=== PATIENT | female | born 1990 | race Two or more races ===

== ENCOUNTER 2016-12-21 04:58 | Day surgery (SDC) | payer OTHER ==
[2016-12-21] MEDS ORDERED: KETOROLAC TROMETHAMINE 30 MG/ML 1 ML VIAL ONE ×2 (05:18→13:48)
[2016-12-21] MEDS ORDERED: ONDANSETRON 4 MG/2ML 2 ML VIAL ONE ×2 (05:18→13:22)
[2016-12-21 05:50] LABS: ABSOLUTE NEUTROPHIL COUNT 5.7 K/mm3 (1.8-7.7); BASO # 0.1 K/mm3 (0.0-0.2); BASO % 0.7 % (0.2-1.0); EOS # 0.2 (0.0-0.5); EOS % 2.4 % (0.9-2.9); HEMOGLOBIN 13.4 gm/l (12.0-16.0); IMM NEUT% 0.2 % (0-1); LYMPH # 3.1 (1.0-4.8); LYMPH % 31.5 % (15-45); MEAN CELL VOLUME 82.3 fl (81.0-99.0); MEAN CORPUSCULAR HEMOGLOBIN 26.9 pg (27.0-31.0); MEAN CORPUSCULAR HGB CONC 32.7 g/dl (33.0-37.0); MEAN PLATELET VOLUME 10.1 fl (7.4-10.4); MONO # 0.8 (0.0-0.8); MONO % 7.8 % (4-12); NEUT % 57.4 % (43-75); PLATELET COUNT 308 K/mm3 (130-400)
[2016-12-21 06:04] LABS: ALB/GLOB RATIO 1.4 (>1.0); ALBUMIN 4.2 gm/dL (3.5-5.7); CALCIUM 9.1 mg/dL (8.6-10.3)
[2016-12-21 06:28] LABS: PH,URINE 6.5 (5.0-8.0); URINE BILIRUBIN NEGATIVE (NEGATIVE); URINE BLOOD NEGATIVE (NEGATIVE); URINE GLUCOSE (UA) NEGATIVE (NEGATIVE); URINE LEUKOCYTE ESTERASE NEGATIVE (NEGATIVE); URINE NITRITE NEGATIVE (NEGATIVE); URINE PROTEIN NEGATIVE (NEGATIVE); URINE UROBILINOGEN NORMAL (0-1 mg/dl)
[2016-12-21 06:29] LABS: URINE APPEARANCE CLEAR; URINE COLOR YELLOW
[2016-12-21] MEDS ORDERED: FAMOTIDINE 20 MG TABLET ONE (07:24)
[2016-12-21] MEDS ORDERED: MAALOX/LIDO2%VISC/SIMETHICONE 40 ML BOT ONE (07:24)
[2016-12-21 09:07] VITALS: BMI 43.3
[2016-12-21] MEDS ORDERED: HYDROMORPHONE HCL 1 MG/ML SYRINGE IV PRN (09:22)
[2016-12-21] MEDS ORDERED: SODIUM CHLORIDE 0.9% 1,000 ML IV ONE (09:22)
[2016-12-21] MEDS ORDERED: OXYCODONE HCL 5 MG TABLET PO PRN (09:22)
[2016-12-21] MEDS ORDERED: ACETAMINOPHEN 325 MG TABLET PO PRN ×2 (09:22→14:59)
[2016-12-21] MEDS ORDERED: BLISTEX LIPSTICK 1 EACH TP PRN (09:22)
[2016-12-21] MEDS ORDERED: MENTHOL/CETYLPYRD 1 EACH LOZENGE PO PRN (09:22)
[2016-12-21] MEDS ORDERED: ONDANSETRON 4 MG/2ML 2 ML VIAL IV PRN ×3 (09:22→14:59)
[2016-12-21] MEDS ORDERED: PUMP TUBING ONE (09:42)
[2016-12-21] MEDS ORDERED: Heparin Sodium 5000 unit/0.5ml syringe SUB-Q SCH (10:30)
[2016-12-21] MEDS ORDERED: D5 1/2NS with 20 mEq KCL 1,000 ML IV SCH (10:30)
[2016-12-21] MEDS ORDERED: CEFUROXIME SODIUM 1.5 GRAM 1.5 G in Premix (Water) 50 ml 1 EACH IV SCH (10:30)
--- NOTE | 2016-12-21 11:03 | US ---
ABDOMINAL-LIMITED COMPARISON: Gallbladder ultrasound, 07/20/1960 HISTORY: Right upper quadrant pain after a fatty meal. Known cholelithiasis. FINDINGS: Gall bladder: Length 9.3 cm by with 2.8 cm. Wall thickness 2.3 mm. 2.4 cm nonmobile stone in the neck of the gallbladder. Gallbladder sludge. There are 2 echogenic foci in the wall, 6 mm and 3 mm, evidence of adenomyosis. Negative Pride sign. Common hepatic duct: 4.2 mm. Common bile duct: 4.4 mm. IMPRESSION: 1. Cholelithiasis with 2.4 cm nonmobile stone in the neck of the gallbladder, along with some sludge. 2. Adenomyosis of the wall of the gallbladder. Preliminary report by [facility]rad radiologist Nannette Loera MD 12/21/2016 at 06:45
[2016-12-21] MEDS ORDERED: HYDROMORPHONE HCL 0.5 MG/0.5 ML SYRINGE IV PRN ×2 (11:13→15:15)
[2016-12-21] MEDS ORDERED: KETOROLAC TROMETHAMINE 30 MG/ML 1 ML VIAL IV PRN ×3 (11:45→19:45)
[2016-12-21] MEDS ORDERED: LIDOCAINE 1%/EPI 1:100,000 (MULTI DOSE) 30 ML VIAL ONE (12:32)
[2016-12-21] MEDS ORDERED: PROPOFOL 20 ML IV ONE ×2 (12:44→14:01)
[2016-12-21] MEDS ORDERED: ROCURONIUM BROMIDE 10 MG/ML DOSE IV ONE (12:44)
[2016-12-21] MEDS ORDERED: FENTANYL 250 MCG/5 ML AMP ONE (12:45)
[2016-12-21] MEDS ORDERED: MIDAZOLAM HCL 1 MG/ML 2ML VIAL ONE (12:45)
[2016-12-21] MEDS ORDERED: LACTATED RINGERS 1,000 ML ONE (12:51)
[2016-12-21] MEDS ORDERED: PRIMARY W/MICRODRIP 60 DROPS/ML ONE (12:51)
[2016-12-21] MEDS ORDERED: EPHEDRINE SULFATE UD SYR 25 MG 25 MG/5 ML SYRINGE IV ONE (13:17)
[2016-12-21] MEDS ORDERED: DEXAMETHASONE SOD PHOS 4 MG/1 ML VIAL ONE (13:22)
[2016-12-21] MEDS ORDERED: GLYCOPYRROLATE 0.2 MG/ML 1ML VIAL ONE (13:42)
[2016-12-21] MEDS ORDERED: NEOSTIGMINE METHYLSULFATE 1 MG/ML DOSE ONE (13:42)
[2016-12-21] MEDS ORDERED: FENTANYL 100 MCG/2 ML VIAL ONE (13:46)
--- NOTE | 2016-12-21 14:09 | PCMON ---
Date of Procedure: 12/21/16 Start Time: 1:00 pm PREOPERATIVE DIAGNOSIS Acute cholecystectomy in setting of recurrent biliary colic POSTOPERATIVE DIAGNOSIS same PROCEDURE PERFORMED Laparoscopic cholecystectomy. COMPLICATIONS None. OPERATIVE FINDINGS Inflammation of the gallbladder in region of inferior portion of the gallbladder ESTIMATED BLOOD LOSS 30 mL. BRIEF INDICATIONS SOO BUTCHER is a 26 year old F patient with symptoms consistent with gallbladder disease and was admitted for consideration of laparoscopic cholecystectomy. The preoperative liver function tests were normal, and RUQ-focused ultrasound demonstrated a large 2.1 cm gallstone. Risks and benefits of surgery were explained to the patient, including the 1: 200 risk of common bile duct injury and the possible need for conversion to open technique (5%). The patient declined the possible alternatives and agreed to proceed with surgery, providing informed consent. DESCRIPTION OF PROCEDURE The patient was brought to the operating room and placed supine on the operating room table. A surgical briefing was held to verify the correct patient and correct procedure. A general anesthetic was induced uneventfully, followed by the administration of a subcutaneous heparin injection and perioperative antibiotics. Pneumatic compression stockings were placed on the legs and powered on. The abdomen was prepped and draped in a sterile fashion. A 5-mm direct optical view trocar was used to enter the right upper quadrant under direct vision of the abdominal wall layers. Once inside the abdominal cavity, a pneumoperitoneum was created. No injury to underlying structures occurred with placement of this trocar. Once inside the abdominal cavity, an additional 11-mm port was placed in the upper midline just below the xiphisternum. An additional 5-mm port was placed in the supraumbilical position , and a 5-mm port was placed in the right lateral position. All trocars were placed under direct visualization. There was no injury to underlying structures with placement of these trocars. Once inside the abdominal cavity and the pneumoperitoneum was created, the gallbladder was retracted over the liver. We were able to identify inflammation around the gallbladder, and there appeared to be a stone in Riya pouch. The gallbladder was then grasped by Riya pouch and retracted up away from the common bile duct. Pre-dissection safety checklist: Fundus of gallbladder retracted to 10 o'clock: yes. Line between Rouviere sulcus and base of segment IV identified: yes. Safe level of dissection identified: yes. Posterior leaf of peritoneum covering hepatobiliary triangle identified: yes. The dissection was initiated with hook electrocautery on the posterior peritoneum covering of the hepatobiliary triangle, followed by the medical border of the gallbladder in the region of Calot triangle. We identified the lymph node of Calot which was not removed during the dissection. We continued our dissection, mobilizing lymph node off the cystic artery. As the triangle was developed, the cystic artery was identified. An intraoperative cholangiogram was not performed. The cystic duct and artery were both identified and exposed. A critical view of safety was obtained by clearing all the tissue between the underside of the infundibulum and the liver so the cystic duct and the artery could be clearly seen going into the gallbladder. The triangle of Calot had no aberrant structures or additional anatomy present within the triangle between the liver bed, the cystic duct and the region of the gallbladder. Once the critical view was demonstrated and there was no evidence of additional structures, we turned our attention to clipping the cystic artery and duct. Pre-clipping of cystic duct safety checklist: Critical view confirmed: yes. The cystic artery was clipped twice proximally, once distally and transected. This was confirmed as the artery with pulsatile beating in the region of the clips once transected. Once the artery was taken, we turned our attention to clipping the cystic duct. The cystic duct was clipped with 2 to 3 clips proximally and once distally. This was then transected, and we then removed the gallbladder from the gallbladder bed. No injury to the underlying liver occurred with removal of the gallbladder, there was no evidence of bile leak or bile duct injury, and the gallbladder was not perforated with no spillage of stones prior to removal. The gallbladder was then placed in an Endocatch bag and removed through the 11-mm trocar. Once the trocar was removed, we then irrigated the right upper quadrant. The pneumoperitoneum was released, and the trocars were removed under direct visualization.
[2016-12-21] MEDS ORDERED: PROMETHAZINE HCL 25 MG/ML VIAL IM PRN (14:44)
[2016-12-21] MEDS ORDERED: NALOXONE HCL 0.4 MG/ML VIAL IV PRN (14:44)
[2016-12-21] MEDS ORDERED: ATROPINE SULFATE 0.4 MG/1 ML VIAL IV PRN (14:44)
[2016-12-21] MEDS ORDERED: FENTANYL 100 MCG/2 ML VIAL IV PRN (14:44)
--- NOTE | 2016-12-21 15:04 | HP ---
SOO BAXTER [id number] HISTORY OF PRESENT ILLNESS: I had the pleasure of meeting Mrs. Edwin Falcon in [facility]. She was admitted through the emergency department early this morning with symptoms of biliary colic and progressing to acute cholecystitis. Mrs. Pineda had previous right upper quadrant abdominal pain dating back a number of months. In fact, she had seen a surgeon and was planning to have a laparoscopic cholecystectomy in October of 2016. She felt better and had not had an attack in a number of months. So, she therefore delayed the cholecystectomy until a planned date later this summer. She presented to the hospital today with worsening right upper quadrant abdominal pain which is not settling with antibiotics, and resuscitation, and pain medications. She had a previous ultrasound which demonstrated gallstones. She had a repeat ultrasound today which demonstrates a gallbladder with 2.3 mm thick gallbladder wall with 2.4 cm nonmobile stone in the neck of the gallbladder with surrounding gallbladder sludge. She had a negative sonographic Pride's at the time of his report. Her common bile duct was approximately a 4 mm in diameter. Mrs. Pineda had lab work which reveals normal white count at 9.9, and normal bilirubin at 0.5 with normal AST, ALT, and alkaline phosphatase. PHYSICAL EXAMINATION: GENERAL: Mrs. Pineda is her stated age. ABDOMEN: Her abdomen is soft. She is tender in the right upper quadrant and appears to have a Pride's sign. She appears nontoxic. CARDIOVASCULAR EXAM: She has normal cardiovascular exam with a normal heart rate and heart sounds as well as equal and bilateral breath sounds. ASSESSMENT AND PLAN: Based on the classic symptoms of biliary colic and prolonged episode today suggestive of acute cholecystitis, I recommended laparoscopic cholecystectomy. He ultrasound demonstrates gallstones. She has no evidence of common duct obstruction. I reviewed the risks and benefits of general surgery which included, but were not limited to deep venous thrombosis, myocardial infarction, pulmonary embolism, wound infection, urinary tract infection, kidney failure, respiratory failure, reaction to medication, reaction to anesthetic, and hernia. I also discussed the specific risks related to a laparoscopic cholecystectomy. I discussed a 5% risk of conversion to open procedure. I also discussed a 1 in 200 risk of common bile duct injury requiring either an endoscopy such as an endoscopic retrograde cholangiopancreatography, or major reoperation to repair the bile duct injury was explained in detail. Mrs. Edwin Falcon asked a number of appropriate questions, which I was able to answer. She agreed to proceed with surgery. Informed consent was obtained. We will plan to procedure with laparoscopic cholecystectomy at the operating rooms earliest convenience. KHLOE/ludy
[2016-12-21] MEDS: HYDROMORPHONE HCL 1 MG/ML SYRINGE IV PRN ×3 (16:49→23:47)
[2016-12-21] MEDS: LACTATED RINGERS 1,000 ML IV SCH (18:52)
[2016-12-21] MEDS: CEFUROXIME SODIUM 1.5 GRAM 1.5 G in Premix (Water) 50 ml 1 EACH IV SCH (19:27)
[2016-12-21] MEDS: D5 1/2NS with 20 mEq KCL 1,000 ML IV SCH (20:19)
[2016-12-22] MEDS: LACTATED RINGERS 1,000 ML IV SCH ×2 (01:14→12:09)
[2016-12-22] MEDS: CEFUROXIME SODIUM 1.5 GRAM 1.5 G in Premix (Water) 50 ml 1 EACH IV SCH (03:39)
[2016-12-22] MEDS: D5 1/2NS with 20 mEq KCL 1,000 ML IV SCH ×2 (06:58→12:09)
[2016-12-22] MEDS: OXYCODONE HCL 5 MG TABLET PO PRN ×2 (08:27→10:20)
[2016-12-22] MEDS ORDERED: FAMOTIDINE 10 MG/ML 2ML VIAL IV SCH (09:00)
[2016-12-22 09:12] VITALS: BP 108/56
--- NOTE | 2016-12-24 14:42 | SURGPATH ---
[facility] [address] [place] [id number] Patient Name: SOO BAXTER MR#: [id number] : 1990 Gender: F Specimen #: [id number] Collected: 12/21/2016 Received: 12/23/2016 Reported: 12/24/2016 Submitting Phys: NAIDA RENDON Copy To Phys: [facility] Clinical History / Pre-Operative Diagnosis: CHOLECYSTITIS Specimen Source / Surgical Procedure Performed: GALLBLADDER Interpretation: GALLBLADDER, CHOLECYSTECTOMY: - CHRONIC CHOLECYSTITIS AND CHOLELITHIASIS WITH CHOLESTEROLOSIS Electronically Signed Out Lachelle Mark M.D. Gross Description: The specimen is received in a formalin filled container labeled with the patient's name and "gallbladder". An intact and engorged gallbladder is 8.0 x 2.5 cm. The serosa is smooth and yao. The wall averages 0.3 cm. The mucosa is dean and velvety with scattered slightly raised yellow flecks. There is no nodule or induration. The lumen contains a moderate amount of thick, dark green bile and a single 3 cm ovoid, finely granular green dean calculus. Three outbound telemarketing representative sections are submitted in one cassette including a cross section through the cystic duct surgical margin, a central cross section and a longitudinal section through the fundus. Mc Reyes Microscopic Description: Sections from the gallbladder show fibrosis and Rokitansky-Aschoff sinuses. Collections of foamy histiocytes are seen within the lamina propria. 1: 08859 K81.1
== END 2016-12-22 13:35 | disposition home or self-care (01) ==
LOC: ED 04:58 → SDC 07:57 → MS 08:37 → SDC 12-22 13:35
PROVIDERS: ATTEND Surgery
PROC: 0FT44ZZ Resection of Gallbladder, Percutaneous Endoscopic Approach (ICD-10-PCS; principal; 2016-12-21)
DX: K80.10 Calculus of gallbladder with chronic cholecystitis without obstruction (principal)
CPT/HCPCS: 83690; 84703; 85025; 80053; 81003; 76705; 96375; 99285 ×2; 96374; 47562; J1170 ×4; J3010 ×3; A9270 ×3; J1644; J1100; J1885 ×3; J2250; J2001; J2405 ×3; J7120; J7030 ×2; J0697 ×2

== ENCOUNTER 2016-12-23 14:29 | Emergency (ER) | payer OTHER ==
[2016-12-23] MEDS ORDERED: ONDANSETRON 4 MG ODT TAB ONE (16:04)
== END 2016-12-23 16:58 | disposition home or self-care (01) ==
LOC: ED 14:29
DX: R11.2 Nausea with vomiting, unspecified (principal); Z98.890 Other specified postprocedural states; Z90.49 Acquired absence of other specified parts of digestive tract